=== PATIENT | female | born 1965 | race American Indian/Alaskan Native ===

== ENCOUNTER 2020-11-25 08:00 | Outpatient (CLI) | payer OTHER | END 2020-11-25 08:30 | disposition home or self-care (01) | LOC: PPH VACUNA 08:00 | DX: Z23 Encounter for immunization (principal) ==

== ENCOUNTER 2020-12-16 08:00 | Outpatient (CLI) | payer OTHER | END 2020-12-16 08:30 | disposition home or self-care (01) | LOC: PPH VACUNA 08:00 | DX: Z23 Encounter for immunization (principal) ==

== ENCOUNTER 2022-12-20 08:28 | Outpatient (CLI) | payer OTHER | END 2022-12-20 08:33 | disposition home or self-care (01) | LOC: SONOGRAMA 08:28 | DX: R22.32 Localized swelling, mass and lump, left upper limb (principal) ==